=== PATIENT | female | born 1950 | race Caucasian/White ===

== ENCOUNTER → 2017-12-03 | Outpatient (CLI) | payer OTHER ==
--- NOTE | 2017-12-03 17:26 | 2DMMODE ---
[place] [address] 2 D/M-MODE ECHOCARDIOGRAM Name: DIANA PERSON Room: [facility]#: [id number] Admission: 12/03/17 Attend Phys: Deepa Barnes Discharge: Date of : 48 Date of Service: 12/03/17 1725 Report #: [id number] THIS REPORT FOR: //name// APPROVED REPORT Study performed: 12/03/2017 14:02:11 EXAM: Comprehensive 2D, Doppler, and color-flow Echocardiogram Patient Location: Out-Patient Status: routine BSA: 2.26 HR: 86 bpm BP: 150/82 mmHg Other Information Study Quality: Good Indications Murmur 2D Dimensions IVSd: 13.42 (7-11mm) LVOT Diam: 20.56 (18-24mm) LVDd: 41.72 mm PWd: 9.83 (7-11mm) Ascending Ao: 29.55 (22-36mm) LVDs: 20.95 (25-40mm) Aortic Root: 29.92 mm Volumes Left Atrial Volume (Systole) LA ESV Index: 12.10 mL/m2 Aortic Valve AoV Peak Ziyad.: 1.11 m/s AO Peak Gr.: 4.95 mmHg LVOT Max P.78 mmHg AO Mean Gr.: 3.16 mmHg LVOT Mean P.57 mmHg LVOT Max V: 0.83 m/s AO V2 VTI: 23.34 cm LVOT Mean V: 0.59 m/s SIENA (VTI): 2.16 cm2 LVOT V1 VTI: 15.17 cm Mitral Valve E/A Ratio: 0.73 MV Decel. Time: 203.05 ms MV E Max Ziyad.: 0.58 m/s MV PHT: 58.[place] [address] 2 D/M-MODE ECHOCARDIOGRAM Name: DIANA PERSON Room: [facility]#: [id number] Admission: 12/03/17 Attend Phys: Deepa Barnes Discharge: Date of : 48 Date of Service: 12/03/17 1725 Report #: [id number] MVA (PHT): 3.74 cm2 TDI E/Lateral E': 4.83 E/Medial E': 4.83 Medial E' Ziyad.: 0.12 m/s Lateral E' Ziyad.: 0.12 m/s Pulmonary Valve PV Peak Ziyad.: 1.04 m/s PV Peak Gr.: 4.34 mmHg Tricuspid Valve RAP Estimate: 5.00 mmHg TR Peak Gr.: 22.49 mmHg RVSP: 27.49 mmHg PA Pressure: 27.49 mmHg Left Ventricle The left ventricle is normal size. There is normal LV segmental wall motion. There is normal left ventricular wall thickness. Left ventricular systolic function is normal. The left ventricular ejection fraction is within the normal range. LVEF is 65-70%. Grade I - abnormal relaxation pattern. Right Ventricle The right ventricle is normal size. The right ventricular systolic function is normal. Atria The left atrium size is normal. The right atrium size is normal. Aortic Valve The aortic valve is normal in structure. No aortic regurgitation is present. There is no aortic valvular stenosis. Mitral Valve Mild mitral annular calcification. There is no mitral valve regurgitation noted. No evidence of mitral valve stenosis. Tricuspid Valve The tricuspid valve is normal in structure. Mild tricuspid regurgitation. Pulmonic Valve The pulmonary valve is normal in structure. There is no pulmonic [place]vular [place] [address] 2 D/M-MODE ECHOCARDIOGRAM Name: DIANA PERSON Room: [facility]#: [id number] Admission: 12/03/17 Attend Phys: Deepa Barnes Discharge: Date of : 48 Date of Service: 12/03/17 1725 Report #: [id number] Great Vessels The aortic root is normal in size. IVC is normal in size and collapses >50% with inspiration. Pericardium There is no pericardial effusion. <Conclusion> Left ventricular systolic function is normal. The left ventricular ejection fraction is within the normal range. <ELECTRONICALLY SIGNED> By: Remy Finn MD, FACC 12/03/171724 24 24 Remy Finn MD, FACC /INF
== END ==
LOC: M.RAD 11-19 12:18
DX: I34.8 Other nonrheumatic mitral valve disorders (principal); M85.89 Other specified disorders of bone density and structure, multiple sites; I07.1 Rheumatic tricuspid insufficiency; Z78.0 Asymptomatic menopausal state